=== PATIENT | female | born 1940 | race Native Hawaiian/Other Pacific Islander ===

== ENCOUNTER 2017-05-14 16:15 | Inpatient (IN) | payer OTHER ==
[2017-05-14] VITALS (8 sets, daily range): BP systolic 120–146; BP diastolic 52–65; TEMP 98–99.4
[~2017-05-14] VITALS: Ht 162.6 cm; Wt 102.6 kg
[2017-05-14] MEDS ORDERED: LIPITOR40 MG PO (16:45)
[2017-05-14] MEDS ORDERED: AMLODIPINE BESYLATE PO (16:46)
[2017-05-14] MEDS ORDERED: NORTRIPTYLIN25 MG OR (16:46)
[2017-05-14] MEDS ORDERED: PARO20TA3 PO (16:47)
[2017-05-14] MEDS ORDERED: COZAAR100 MG PO (16:48)
[2017-05-14] MEDS ORDERED: VITAMIN D32000 UNI1 OR (16:49)
[2017-05-14] MEDS ORDERED: JANUVIA100 MG PO (16:50)
[2017-05-14] MEDS ORDERED: NEXIUM20 M1 PO (16:51)
[2017-05-14] MEDS ORDERED: GLIP10TA55 PO (16:51)
[2017-05-14] MEDS ORDERED: XARELTO20 MG OR (16:51)
[2017-05-14] MEDS ORDERED: CETIRIZINE10 MG PO (16:51)
[2017-05-14] MEDS ORDERED: METOPROLOL25 M1 PO (16:52)
[2017-05-14 17:03] LABS: PLATELET COUNT 261 K/uL (152-353)
[2017-05-14 17:07] LABS: POTASSIUM 3.5 mmol/L (3.6-5.2)
[2017-05-14 17:37] LABS: PARTIAL THROMBOPLASTIN TIME 21.7 SECONDS (24.5-33.6)
[2017-05-14 23:32] LABS: PLATELET COUNT 205 K/uL (152-353)
[2017-05-15] VITALS (10 sets, daily range): BP systolic 94–170; BP diastolic 51–82; TEMP 98.4–101.4; Ht 162.6 cm; Wt 102.6 kg
[2017-05-15 16:20] LABS: PLATELET COUNT 197 K/uL (152-353)
[2017-05-16] VITALS (18 sets, daily range): BP systolic 145–182; BP diastolic 62–88; TEMP 98–99.7
[2017-05-16 08:50] LABS: PLATELET COUNT 195 K/uL (152-353)
[2017-05-16 09:03] LABS: POTASSIUM 3.6 mmol/L (3.6-5.2)
[2017-05-17] VITALS (17 sets, daily range): BP systolic 112–176; BP diastolic 65–110; TEMP 98–99.4
[2017-05-17 06:31] LABS: PLATELET COUNT 182 K/uL (152-353)
[2017-05-17 06:47] LABS: POTASSIUM 3.2 mmol/L (3.6-5.2)
[2017-05-18] VITALS: BP 135/75; TEMP 98.5
[2017-05-18 04:00] VITALS: BP 155/78; TEMP 97.9
[2017-05-18 06:12] LABS: POTASSIUM 3.5 mmol/L (3.6-5.2)
[2017-05-18 06:30] LABS: PLATELET COUNT 162 K/uL (152-353)
[2017-05-18 08:00] VITALS: BP 159/73; TEMP 98.3
[2017-05-18] MEDS ORDERED: AZIT250T3 PO (10:21)
[2017-05-18 12:00] VITALS: BP 153/84; TEMP 98.6
== END 2017-05-18 15:55 | disposition home or self-care (01) | DRG 377 ==
LOC: ED 16:15 → MED/SURG 19:07 → ICU 05-16 13:45 → MED/SURG 05-17 14:40
PROVIDERS: Emergency Medicine; ADMIT Specialist
PROC: 30233N1 Transfusion of Nonautologous Red Blood Cells into Peripheral Vein, Percutaneous Approach (ICD-10-PCS; 2017-05-14)
PROC: 30233N1 Transfusion of Nonautologous Red Blood Cells into Peripheral Vein, Percutaneous Approach (ICD-10-PCS; principal; 2017-05-15)
PROC: 30233N1 Transfusion of Nonautologous Red Blood Cells into Peripheral Vein, Percutaneous Approach (ICD-10-PCS; 2017-05-15)
PROC: 0DJ08ZZ Inspection of Upper Intestinal Tract, Via Natural or Artificial Opening Endoscopic (ICD-10-PCS; 2017-05-15)
DX: K92.2 Gastrointestinal hemorrhage, unspecified (principal); J18.8 Other pneumonia, unspecified organism; D64.89 Other specified anemias; R06.09 Other forms of dyspnea; I10 Essential (primary) hypertension; K21.9 Gastro-esophageal reflux disease without esophagitis; E11.9 Type 2 diabetes mellitus without complications; J44.9 Chronic obstructive pulmonary disease, unspecified; K44.9 Diaphragmatic hernia without obstruction or gangrene
CPT/HCPCS: 36415; 36430; 36600; 51702; 80053; 81000; 81002; 82272; 82550; 82553; 82805; 82948; 82962; 83605; 83735; 83880; 84484; 85027; 85379; 85610; 85730; 86850; 86900; 86901; 86922; 87040; 87070; 87077; 87205; 87804; 93005; 94640; 94664; 94760; 96360; 96361; 96372; 99284; J0696; J1815; J1940; J2001; J2060; J2250; J2405; J2704; J2930; J3480; J3490; P9016

== ENCOUNTER 2022-08-28 15:40 | Observation (INO) | payer OTHER ==
[~2022-08-28] VITALS: Ht 162.6 cm; Wt 99.0 kg
[~2022-08-28 15:40] MED LIST: AMLODIPINE PO; AZIT250T3 PO; CETIRIZINE10 MG PO; COZAAR100 MG PO; GLIP10TA55 PO; JANUVIA100 MG PO; LIPITOR40 MG PO; METOPROLOL25 M1 PO; NEXIUM20 M1 PO; NORTRIPTYLIN25 MG OR; PARO20TA3 PO; VITAMIN D32000 UNI1 OR; XARELTO20 MG OR
[2022-08-28 15:58] VITALS: BP 150/58; TEMP 98.3
[2022-08-28 16:56] LABS: PLATELET COUNT 211 K/uL (152-353)
[2022-08-28 17:05] LABS: POTASSIUM 3.8 mmol/L (3.6-5.2)
[2022-08-29] VITALS (18 sets, daily range): BP systolic 129–210; BP diastolic 37–98; TEMP 98.1–99.1; Ht 162.6 cm; Wt 99.0 kg
[2022-08-29] MEDS ORDERED: GLIPIZIDE XL PO (09:23)
[2022-08-29] MEDS ORDERED: HYDRALAZINE25 MG PO (09:24)
[2022-08-29] MEDS ORDERED: DOK100 MG PO (09:25)
[2022-08-29] MEDS ORDERED: MONT10TA PO (09:26)
[2022-08-29] MEDS ORDERED: PANTOPRAZOLE 40MG TA PO (09:27)
[2022-08-29] MEDS ORDERED: LANTUS SOL100 UNIT/M SC (09:28)
[2022-08-30] VITALS: BP 166/64; TEMP 98.2
[2022-08-30 04:00] VITALS: BP 182/72; TEMP 98.3
[2022-08-30 04:32] LABS: PLATELET COUNT 200 K/uL (152-353)
[2022-08-30 05:45] LABS: POTASSIUM 3.6 mmol/L (3.6-5.2)
[2022-08-30 08:00] VITALS: BP 139/54; TEMP 98.1
[2022-08-30] MEDS ORDERED: XOPENEX0.31 MG/3 INH (11:46)
[2022-08-30] MEDS ORDERED: ALBU90AE13 INH (11:48)
[2022-08-30 12:00] VITALS: BP 164/67; TEMP 98.3
== END 2022-08-30 13:01 | disposition home or self-care (01) ==
LOC: ED 15:40 → MED/SURG 18:21
PROVIDERS: ADMIT Family Medicine; ATTEND Internal Medicine
DX: D64.89 Other specified anemias (principal); E11.65 Type 2 diabetes mellitus with hyperglycemia; Z79.4 Long term (current) use of insulin; I10 Essential (primary) hypertension; Z86.718 Personal history of other venous thrombosis and embolism; Z79.01 Long term (current) use of anticoagulants; Z86.711 Personal history of pulmonary embolism; K21.9 Gastro-esophageal reflux disease without esophagitis; F32.A Depression, unspecified; R06.02 Shortness of breath; R53.1 Weakness; J44.9 Chronic obstructive pulmonary disease, unspecified; Z79.899 Other long term (current) drug therapy
CPT/HCPCS: 36415; 36430; 36600; 80048; 80053; 80307; 81002; 82607; 82728; 82746; 82805; 82948; 83540; 83550; 83880; 84484; 85014; 85018; 85027; 85379; 86140; 86850; 86900; 86901; 86922; 93005; 94760; 96374; 99221; 99284; G0378; J0360; J3490; J7040; P9016